=== PATIENT | male | born 1965 | race Caucasian/White ===

== ENCOUNTER → 2017-07-22 10:00 | Outpatient (CLI) | payer OTHER, SELFPAY ==
[2017-07-22 11:25] LABS: Alanine Aminotransferase 32 IU/L (21-72); Albumin 4.5 g/dL (3.5-5.0); Albumin Globulin Ratio 1.3 (1.0-2.8); Alkaline Phosphatase 85 U/L (38-126); Aspartate Aminotransferase 29 IU/L (17-59); BUN Creatinine Ratio 17.8 (6-22); Bilirubin Total 0.7 mg/dL (0.2-1.3); Blood Urea Nitrogen 16 mg/dL (9-20); Calcium 9.7 mg/dL (8.4-10.2); Carbon Dioxide 28 mmol/L (22-32); Chloride 101 mmol/L (98-107); Cholesterol 230 mg/dL (140-199); Estimated Glomerular Filt Rate > 60.0 mL/min (>60); Globulin 3.5 g/dL (1.7-4.1); Glucose 95 mg/dL (70-100); HDL Cholesterol 33 mg/dL (40-60); HEMOLYSIS 19 (0-50); LDL Cholesterol Calculated 160 mg/dL (<100); Potassium 4.5 mmol/L (3.4-5.1); Sodium 142 mmol/L (137-145); Triglycerides 185 mg/dL (35-150)
[2017-07-22 12:39] LABS: Thyroid Stimulating Hormone 3.04 uIU/mL (0.47-4.68)
== END ==
PROVIDERS: Visit Provider Internal Medicine
DX: E78.5 Hyperlipidemia, unspecified (principal)
CPT/HCPCS: 36415; 80053; 80061; 84443

== ENCOUNTER → 2021-08-30 17:32 | Outpatient (CLI) | payer OTHER, SELFPAY ==
--- NOTE | 2021-08-30 | DI.MRI.S_ITS ---
PROCEDURE: MR LUMBAR SPINE WO/W CON INDICATIONS: spinal stenosis, lumbar region TECHNIQUE: Noncontrast sagittal T1 spin echo and T2 fast echo, sagittal STIR, and T2 fast spin echo through the lumbar spine. In cases with scoliosis, additional coronal T2 fast spin echo may be performed. COMPARISON: [facility], CR, XR LUMBAR SPINE 2 OR 3 VIEWS, 08/15/2021, 10:27. [facility], CR, XR LUMBAR SPINE 2 OR 3 VIEWS, 03/06/2021, 8:59. [facility], MR, MR LUMBAR SPINE WITHOUT CONTRAST, 05/18/2020, 18:28. [facility], MR, MR LUMBAR SPINE WITHOUT CONTRAST, 10/02/2018, 15:07. [facility], CR, XR LUMBAR SPINE WITH OLBIQUES PLUS FLEXION EXTENSION, 10/02/2018, 10:35. FINDINGS: Image quality: Excellent. Alignment and Curvature: There is normal bony alignment. Bone Marrow: Prior left L3-L4 laminotomy. Multilevel reactive endplate changes redemonstrated. No acute vertebral body compression fractures. Spinal Cord: Conus medullaris terminates at the L1 level. Visualized cord demonstrates normal signal and size. Paraspinous Soft Tissues: No paravertebral masses. T12-L1: Loss of disc signal and slight loss of disc height. Mild to moderate diffuse disc bulge. Small central disc protrusion. Mild bilateral facet hypertrophy. Mild narrowing of the central canal. Mild bilateral neural foraminal narrowing. No neural compression. L1-L2: Loss of disc signal and height. Mild, diffuse disc bulge. Moderate-sized right central disc protrusion. Mild bilateral facet hypertrophy. Moderate narrowing of the central canal. Moderate bilateral neural foraminal narrowing. No neural compression. L2-L3: Loss of disc signal. Moderate bilateral facet hypertrophy. Mild to moderate narrowing of the central canal. Moderate bilateral neural foraminal narrowing. No neural compression. L3-L4: Loss of disc signal and height. Moderate, diffuse disc bulge. Central/left central disc protrusion. Mild bilateral facet hypertrophy. Severe narrowing of the central canal with compression of the nerve roots of the cauda equina. Moderate right and severe left neural foraminal narrowing with compression of the exiting left L3 nerve root. L4-L5: Loss of disc signal and height. Mild, diffuse disc bulge. [id number] bilateral facet hypertrophy. Moderate to severe narrowing of the central canal. Severe right and moderate left neural foraminal narrowing with compression of the exiting right L4 nerve root. L5-S1: Loss of disc signal. Severe bilateral facet hypertrophy. Mild narrowing of the central canal. Moderate bilateral neural foraminal narrowing. No neural compression. IMPRESSION: 1. Multilevel degenerative disc disease. 2. Multilevel facet arthropathy. 3. Severe L3-L4 central canal narrowing with compression of the traversing nerve roots of the cauda equina. 4. Severe left L3-L4 neural foraminal narrowing with compression of the exiting left L3 nerve root. Severe right L4-L5 neural foraminal narrowing with compression exiting right L4 nerve root. 5. No suspicious postcontrast enhancement. Dictated by: Isabelle Massey MD, PhD on 08/31/2021 at 10:41 Approved by: Isabelle Massey MD, PhD on 08/31/2021 at 10:53
== END ==
PROVIDERS: PCP Internal Medicine; Referring Provider Orthopaedic Surgery Orthopaedic Surgery of the Spine; Visit Provider Orthopaedic Surgery Orthopaedic Surgery of the Spine
DX: M48.062 Spinal stenosis, lumbar region with neurogenic claudication (principal); M51.36 Other intervertebral disc degeneration, lumbar region; M47.816 Spondylosis without myelopathy or radiculopathy, lumbar region; M47.817 Spondylosis without myelopathy or radiculopathy, lumbosacral region
CPT/HCPCS: 72158; A9579

== ENCOUNTER → 2023-09-26 15:42 | Outpatient (CLI) | payer OTHER, SELFPAY ==
--- NOTE | 2023-09-26 15:45 | DI.MRI.S_ITS ---
PROCEDURE: MR CERVICAL SPINE WO CON INDICATIONS: CERVICAL RADICULOPATHY,PRIOR CERVICAL SURGERY TECHNIQUE: Noncontrast sagittal T1 spin echo and T2 fast spin echo, sagittal STIR, foraminal oblique sagittal T2 fast spin echo, and axial gradient echo or T2 fast spin echo through the cervical spine. COMPARISON: [facility], CR, XR CERVICAL SPINE 1 VIEW, 09/17/2017, 13:28. [facility], MR, C-SPINE WITHOUT CONTRAST, 02/11/2017, 12:37. FINDINGS: Image quality: Diagnostic Alignment: Trace retrolisthesis of C3 on C4, also seen previously. Marrow: C5-T1 fusion hardware. There is evidence of osseous integration on limited MRI evaluation. No acute fracture. No traumatic subluxation Cord: No pathologic cord signal Soft tissues: No pathologic prevertebral soft tissue swelling Specific levels: C2-C3: Mild facet arthropathy. Mild left neural foraminal narrowing. C3-C4: Posterior disc osteophyte complex. Moderate central narrowing. Uncovertebral and facet arthropathy. [id number] right and moderate to severe left neural foraminal narrowing. C4-C5: Posterior disc osteophyte complex. Facet and uncovertebral arthropathy. Moderate central narrowing. Ligamentum hypertrophy. Moderate to severe right and moderate left neural foraminal narrowing. Fusion changes are seen from C5-T1. No high-grade central narrowing. There is mild narrowing at the level C5-C6. Multilevel [id number] areas of bilateral neural foraminal narrowing also seen. IMPRESSION: C5-T1 anterior fusion hardware surgical changes. Moderate spondylotic findings in the upper cervical spine above the fusion, probable slight progression compared to 2017. Dictated by: Bryan Diaz M.D. on 09/26/2023 at 20:53 Approved by: Bryan Diaz M.D. on 09/26/2023 at 20:59
== END ==
LOC: MRI 15:45
PROVIDERS: PCP Student in an Organized Health Care Education/Training Program; Referring Provider Student in an Organized Health Care Education/Training Program; Visit Provider Student in an Organized Health Care Education/Training Program
DX: M47.22 Other spondylosis with radiculopathy, cervical region (principal); M48.02 Spinal stenosis, cervical region; Z98.1 Arthrodesis status
CPT/HCPCS: 72141